=== PATIENT | female | born 1995 | race Two or more races ===

== ENCOUNTER 2017-12-05 21:51 | Emergency (ER) | payer OTHER ==
[~2017-12-05] VITALS: Ht 157.5 cm; Wt 63.5 kg
[~2017-12-05 21:51] MED LIST: BENTYL10 MG/ML; CIPRO500 MG PO; DOLOGESIC CAPLE1 TAB PO; SEPTRA DS TABLE1 TAB PO; TAMS0.4C PO
[2017-12-06] MEDS ORDERED: KETO10TA2 PO (03:29)
== END 2017-12-06 03:58 | disposition home or self-care (01) ==
LOC: ER 21:51
DX: M54.5 Low back pain (principal)

== ENCOUNTER 2018-09-10 18:12 | Emergency (ER) | payer OTHER ==
[~2018-09-10] VITALS: Ht 157.5 cm; Wt 57.2 kg
[~2018-09-10 18:12] MED LIST changes: +KETO10TA2 PO
== END 2018-09-10 23:00 | disposition home or self-care (01) ==
LOC: ER 18:12
DX: S06.0X9A Concussion with loss of consciousness of unspecified duration, initial encounter (principal); S13.4XXA Sprain of ligaments of cervical spine, initial encounter; W22.8XXA Striking against or struck by other objects, initial encounter; Y93.89 Activity, other specified; Y92.89 Other specified places as the place of occurrence of the external cause; Y99.8 Other external cause status

== ENCOUNTER 2019-06-19 18:50 | Emergency (ER) | payer OTHER ==
[~2019-06-19] VITALS: Ht 157.5 cm; Wt 56.7 kg
== END 2019-06-19 22:14 | disposition home or self-care (01) ==
LOC: ER 18:50
DX: J06.9 Acute upper respiratory infection, unspecified (principal); B96.0 Mycoplasma pneumoniae [M. pneumoniae] as the cause of diseases classified elsewhere

== ENCOUNTER 2019-06-23 13:58 | Emergency (ER) | payer OTHER ==
[~2019-06-23] VITALS: Ht 157.5 cm; Wt 56.7 kg
== END 2019-06-23 15:52 | disposition home or self-care (01) ==
LOC: ER 13:58
DX: J06.9 Acute upper respiratory infection, unspecified (principal)

== ENCOUNTER 2021-09-25 14:13 | Emergency (ER) | payer OTHER ==
[~2021-09-25] VITALS: Ht 157.5 cm; Wt 63.5 kg
[2021-09-25] MEDS ORDERED: GLIMEPIRIDE2 MG PO (15:06)
[2021-09-25] MEDS ORDERED: ACETAMINOPHEN650 M2 PO (19:12)
[2021-09-25] MEDS ORDERED: VITAMIN C WIT1000 MG PO (19:12)
[2021-09-25] MEDS ORDERED: MOLNUPIRAVIR (200 MG PO (19:12)
[2021-09-25] MEDS ORDERED: MUCINEX DM ER1 EAC1 PO (19:12)
== END 2021-09-25 19:14 | disposition home or self-care (01) ==
LOC: ER 14:13
DX: U07.1 COVID-19 (principal); A49.3 Mycoplasma infection, unspecified site; J06.9 Acute upper respiratory infection, unspecified; R53.81 Other malaise; Z88.0 Allergy status to penicillin

== ENCOUNTER 2024-07-06 18:16 | Emergency (ER) | payer OTHER ==
[~2024-07-06] VITALS: Ht 157.5 cm; Wt 63.5 kg
[~2024-07-06 18:16] MED LIST changes: +ACETAMINOPHEN650 M2 PO; +GABAPENTIN100 M2 PO; +GLIMEPIRIDE2 MG PO; +MOLNUPIRAVIR (200 MG PO; +MUCINEX DM ER1 EAC1 PO; +VITAMIN C WIT1000 MG PO
[2024-07-06] MEDS ORDERED: GLIMEPIRIDE2 MG (18:35)
[2024-07-06 20:57] LABS: HEMATOCRIT 41.9 % (36.0-45.00); HEMOGLOBIN 14.6 g/dL (12.0-15.00); MEAN CELL VOLUME 81.8 fL (80.00-100.00); MEAN CORPUSCULAR HEMOGLOBIN 28.4 pg (27.00-32.0); MEAN CORPUSCULAR HGB CONC 34.8 g/dl (32.0-36.0); PLATELET COUNT 195 K/uL (150-450); RED BLOOD COUNT 5.12 M/uL (4.00-6.00); RED CELL DISTRIBUTION WIDTH 13.8 % (11.5-14.5)
== END 2024-07-06 23:18 | disposition home or self-care (01) ==
LOC: ER 18:19
PROVIDERS: Preventive Medicine Public Health & General Preventive Medicine
DX: B34.9 Viral infection, unspecified (principal); R53.81 Other malaise; Z20.822 Contact with and (suspected) exposure to COVID-19; E11.9 Type 2 diabetes mellitus without complications; Z88.0 Allergy status to penicillin